=== PATIENT | female | born 1980 | race African-American/Black ===

== ENCOUNTER 2021-02-01 13:18 | Inpatient (IN) | payer OTHER ==
[~2021-02-01] VITALS: Ht 154.9 cm; Wt 144.4 kg
--- NOTE | ~2021-02-01 | EMS ---
[address] [address] EMS Patient Care Report Name: FARIBA HAWTHORNE Room #: REG OLVIN Chavez#: [id number] Admission: 02/01/21 Attend Phys: Discharge: Date of : 78 Report #: [id number] THIS REPORT FOR: //name// Report Transmitted: 02/01/2021 13:11 EMS Care Summary [place], [place]/[facility] Incident [id number] @ 02/01/2021 12:32 Incident Location [address] [place], [place] [id number] Patient FARIBA HAWTHORNE Female, 41 Years 1980 Patient Address [address] [place], [place] [id number] Patient History None Reported, Patient Allergies No known allergies, Patient Medications None Reported, Chief Complaint SOB Disposition Transported No Lights/[place] Dispatch Reason Breathing Problem Transported To [facility] Narrative pt found seated on bed, laboring to breathe. Castor Pumper on scene has admin an albuterol neb [employer]PER[employer]. they state pt RA 02 sat was in the "mid 60's". pt [address] [address] EMS Patient Care Report Name: FARIBA HAWTHORNE Room #: REG Scott#: [id number] Admission: 02/01/21 Attend Phys: Discharge: Date of : 78 Report #: [id number] has had a cough for 2 wks and felt sick. for past 2 days she has been SOB and hot. pt is not vaccinated. she req eval at closest ER. pt is on 02/ when we arrive, with mask in place. he o2 sat on NC is 88% on our arrival. pt to stair chair and out to cot. re check VS and transport to [facility]. pt 02 sat increases to 94% during transport. no other changes Initial Vitals @13:10R: 28,SpO2: 94, @12:57P: 104,R: 28,BP: 159/76,Pain: 0/10,GCS: 15,Temp: 101.4F,SpO2: 89,Revised Trauma: 12, Assessments @12:47MENTAL:No Abnormalities,SKIN:Diaphoresis,Hot,HEENT:Head/Face: Drainage,LUNG SOUNDS:ABDOMEN:PELVIS//GI:EXTREMITIES:PULSE:Radial: 2+ Normal,NEURO:No Abnormalities,@13:12MENTAL:SKIN:HEENT:LUNG SOUNDS:ABDOMEN:PELVIS//GI:EXTREMITIES:PULSE:NEURO: Impression Shortness of breath Procedures @12:47ALS AssessmentResponse: Unchanged@12:47StairchairResponse: Unchanged@12:51StretcherResponse: Unchanged@PTAAlbuterol - 2.5 Milligrams (mg) - NebulizedResponse: Unchanged@12:553-Lead ECGResponse: Unchanged@13:00Saline Lock 0cc (22 ga) Site: Hand-LeftResponse: UnchangedFailed@PTAOxygen FlowRate: 6 Device: Nasal Cannula (NC) Response: ImprovedSucceeded Timeline [employer] SUPERVISOR,Albuterol - 2.5 Milligrams (mg) - Nebulized,Response: Unchanged [employer] SUPERVISOR,Oxygen FlowRate: 6 Device: Nasal Cannula (NC) Response: ImprovedSucceeded, 12:31,Call Received 12:31,Dispatch Notified 12:32,Dispatched 12:34,En Route 12:45,On Scene 12:47,At Patient 12:47,ALS Assessment,Response: Unchanged 12:47,Stairchair,Response: Unchanged 12:51,Stretcher,Response: Unchanged 12:55,3-Lead ECG,Response: Unchanged 12:57,BP: 159/76 M,PULSE: 104,RR: 28 R,SPO2: 89 Ox,ETCO2: ,BG: ,PAIN: 0,GCS: 15, 13:00,Saline Lock 0cc 22 ga Site: Hand-Left,Response: UnchangedFailed, 13:03,Depart Scene 13:10,BP: / M,PULSE: ,RR: 28 R,SPO2: 94 Ox,ETCO2: ,BG: ,PAIN: ,GCS: , 13:20,At Destination [facility] [address] [place] [address] EMS Patient Care Report Name: FARIBA HAWTHORNE Room #: REG OLVIN Chavez#: [id number] Admission: 02/01/21 Attend Phys: Discharge: Date of : 78 Report #: [id number] 13:31,Call Closed Disclaimer v1.1 Copyright 2020 [employer] This EMS Care Summary contains data elements from the applicable legal record (which may be displayed differently). It is designed to provide pertinent information for the following purposes: continuity of care, clinical quality, and state data reporting. The complete legal record is available to ED staff and administrators of the receiving hospital in [employer] Patient Tracker. All data is provided "as is."
[2021-02-01 13:20] VITALS: BP 146/88
--- NOTE | 2021-02-01 13:44 | NUR ---
LAB CALLED TO OBTAIN LABS
[2021-02-01 14:23] LABS: ABSOLUTE NEUTROPHILS 10.1 thou/uL (1.4-8.2); BASOPHILS 0.7 % (0.0-2.0); EOSINOPHILS 0.1 % (0.0-3.0); HEMATOCRIT 41.7 % (37.0-47.0); LYMPHOCYTES 17.6 % (24.0-44.0); MCH 27.8 pg (26.0-34.0); MCHC 31.2 g/dL (28.0-37.0); MONOCYTES 6.6 % (1.0-8.0); PLATELET COUNT 370 thou/uL (150-400); RBC 4.69 mil/uL (4.20-5.00); RDW 15.6 % (10.5-14.5); WBC 13.5 thou/uL (4.0-11.0)
[2021-02-01 14:24] LABS: CREATININE 1.1 mg/dL (0.6-1.0); POTASSIUM 4.2 mmol/L (3.5-5.1)
[2021-02-01 14:34] LABS: ALBUMIN 3.3 g/dL (3.4-5.0); TOTAL PROTEIN 7.9 g/dL (6.4-8.2)
[2021-02-01 15:27] LABS: BE(vivo) -1.7 mmol/L (-2 to +3); HCO3 30.3 mmol/L (22.0-26.0); PCO2 92.4 mmHg (35.0-45.0); PO2 76.2 mmHg (80.0-100.0); pH 7.134 (7.360-7.450); sO2 89.8 % (92.0-98.0)
[2021-02-01 16:19] LABS: BE(vivo) -1.9 mmol/L (-2 to +3); HCO3 30.3 mmol/L (22.0-26.0); PO2 83.8 mmHg (80.0-100.0)
[2021-02-01 16:20] LABS: PCO2 93.5 mmHg (35.0-45.0); pH 7.129 (7.360-7.450)
[2021-02-01 17:50] LABS: BE(vivo) -1.1 mmol/L (-2 to +3); HCO3 25.6 mmol/L (22.0-26.0); PCO2 50.6 mmHg (35.0-45.0); PO2 98.1 mmHg (80.0-100.0); pH 7.322 (7.360-7.450); sO2 96.9 % (92.0-98.0)
--- NOTE | 2021-02-01 18:34 | NUR ---
CL PLACED IN THE ER
[2021-02-02] VITALS (9 sets, daily range): BP systolic 111–167; BP diastolic 57–87
[2021-02-02 05:23] LABS: BE(vivo) -0.5 mmol/L (-2 to +3); HCO3 25.3 mmol/L (22.0-26.0); PCO2 46.2 mmHg (35.0-45.0); PO2 76.7 mmHg (80.0-100.0); pH 7.357 (7.360-7.450); sO2 94.8 % (92.0-98.0)
[2021-02-02 06:42] LABS: HEMATOCRIT 38.7 % (37.0-47.0); HEMOGLOBIN 11.8 gm/dL (12.0-15.0); MCH 27.3 pg (26.0-34.0); MCHC 30.5 g/dL (28.0-37.0); MCV 89.5 fL (80.0-100.0); RBC 4.32 mil/uL (4.20-5.00); RDW 15.7 % (10.5-14.5); WBC 14.6 thou/uL (4.0-11.0)
[2021-02-02 06:50] LABS: CALCIUM 7.5 mg/dL (8.5-10.1)
--- NOTE | 2021-02-02 07:30 | EKG ---
[facility] [employer] [place] [address] ELECTROCARDIOGRAM REPORT Name: FARIBA HAWTHORNE Room #: 170-6 ADM IN M.R.#: [id number] Admission: 02/01/21 Attend Phys: Janina Chowdhury MD Discharge: Date of : 78 Report #: [id number] [facility] ED Test Date: 2021-02-01 Test Time: 14:58:18 Pat Name: FARIBA HAWTHORNE Department: Room: 170 Gender: F Contracting Officer: kf : 1980 Requested By: Carl Ramirez Order Number: [id number] MD: Tiburcio Hernandez Measurements Intervals Ramsey Rate: 95 P: 69 NE: 145 QRS: 35 QRSD: 93 T: 76 QT: 364 QTc: 458 Interpretive Statements Sinus rhythm LAE, consider biatrial enlargement Nonspecific T abnormalities, lateral leads Baseline wander in lead(s) II,III,aVF,V1,V5 No previous ECG available for comparison Electronically Signed On 02-02-2021 7:30:08 CDT by Tiburcio Hernandez [email or web address] <ELECTRONICALLY SIGNED> By: Tiburcio Hernandez MD, [facility] 02/02/2130 57 57 Tiburcio Hernandez MD, [facility] /EPI
--- NOTE | 2021-02-02 08:59 | NUR ---
SPOUSE GIVEN UPDATE ON POC ([facility]) [phone].
--- NOTE | 2021-02-02 16:03 | NUR ---
PATIENT ARRIVED TO ICU @ 1412. PATIENT'S BELONGINGS ACCOUNTED FOR AND PLACED IN PATIENT CLOSET.
[2021-02-03] VITALS (24 sets, daily range): BP systolic 118–141; BP diastolic 66–85
--- NOTE | 2021-02-03 08:23 | HC ---
[facility] [place] [address] CONSULTATION Name: FARIBA HAWTHORNE Room #: 240-P ADM IN M.R.#: [id number] Admission: 02/01/21 Attend Phys: Janina Chowdhury MD Discharge: Date of : 78 Report #: [id number] THIS REPORT FOR: cc: FAM - Family physician unknown FAM - Family physician unknown Darvin Sahu MD ~ DATE OF SERVICE: 02/02/2021 INFECTIOUS DISEASE CONSULT ATTENDING PHYSICIAN: Dr. Chowdhury. REASON FOR EVALUATION: Sepsis, complicated by severe pneumonitis, respiratory failure, apparently COVID negative. HISTORY OF PRESENT ILLNESS: This is a 41-year-old woman with history of asthma, previous stroke earlier this year, who apparently at time of presentation was lucid enough to give a history, complained of progressive dyspnea. Noted saturations were quite low on room air. She apparently denied fevers, chills, chest pain. Due to her deteriorating status, she ultimately was sedated, intubated and maintained now on respiratory support, FiO2 100%. She had been tested for coronavirus 2 separate times, both of which have been negative. Chest x-ray does show severe cardiomegaly with widespread infiltrates, suspected component of edema as well. Initial ABG showed pH 7.134, pCO2 of 92.4, pO2 of 76.2 on 14 liters. D-dimer 0.93. Lactic acid was 1.0. CTA of the chest showed no evidence of pulmonary embolus, did have a marked pericardial effusion. Initial temperature was 101.4 with some tachycardia. She was empirically started on antimicrobial therapy with Zosyn. ALLERGIES: None known. MEDICATIONS: Include dexamethasone, Zosyn, enoxaparin, famotidine, and received ceftriaxone and azithromycin as well. PAST MEDICAL HISTORY: History of asthma, previous stroke with residual right lower extremity weakness, morbid obesity. SOCIAL HISTORY: Smokes cigarettes. Occasional ethanol, no illicit drug use. FAMILY HISTORY: Noncontributory. REVIEW OF SYSTEMS: Unobtainable. PHYSICAL EXAMINATION: GENERAL: She appears ill. She is nonresponsive at this point, maintained on mechanical ventilatory support. [facility] [address] [place] [address] CONSULTATION Name: FARIBA HAWTHORNE Room #: 240-P [facility] IN M.R.#: [id number] Admission: 02/01/21 Attend Phys: Janina Chowdhury MD Discharge: Date of : 78 Report #: [id number] VITAL SIGNS: Temperature 98.9, pulse 83, respirations 20, blood pressure 156/94. SKIN: Warm, dry, no rashes. HEENT: ET tube in place. NECK: Thick. LUNGS: Diminished due to body habitus. HEART: Distant. ABDOMEN: Large pannus, somewhat firm. No peritoneal signs. GENITOURINARY AND RECTAL: Deferred. LABORATORY DATA: Chest x-ray as described above, cardiomegaly, bilateral pulmonary edema. Electrolytes: Sodium 140, potassium 4.0, chloride 106, bicarbonate 27, anion gap of 7, BUN and creatinine 16 and 1.0, glucose of 228. CBC: White count 14.6, H and H 11.8 and 38.7, platelets of 358. ABGs: pH 7.357, pCO2 of 46.2, pO2 of 76.7, FiO2 100%. Coronavirus testing, most recently by PCR, initial screening tests were negative. CT chest as described above with no evidence of PE, large pericardial effusion. Venous Doppler, no evidence of DVT. Ferritin 0.02. LDH 459. CRP 148.6. Lactic acid 1.0. Follow up ABGs: pH 7.322, pCO2 of 50.6, pO2 of 98.1, on 100%. ASSESSMENT AND PLAN: Severe sepsis, suspect primarily related to cardiopulmonary related issues, currently has respiratory compromise. For this reason, we will continue empiric therapy. We will add gram-positive coverage to assess for possible resistant Staph ____ as well. At this point, to evaluate pericardial effusion, may need some sort of intervention. At this point, she is not showing evidence of cardiac collapse. Continued supportive care is required with mechanical ventilatory support, wean as allowed. <ELECTRONICALLY SIGNED> By: Darvin Sahu MD 02/03/21 0823 [id number] Darvin Sahu MD /nt
--- NOTE | 2021-02-03 08:39 | 2DMMODE ---
[facility] [place] [address] 2 D/M-MODE ECHOCARDIOGRAM Name: FARIBA HAWTHORNE Room #: 240-P ADM IN M.R.#: [id number] Admission: 02/01/21 Attend Phys: Janina Chowdhury MD Discharge: Date of : 78 Report #: [id number] THIS REPORT FOR: cc: FAM - Family physician unknown FAM - Family physician unknown Tiburcio Hernandez MD [facility] ~ APPROVED REPORT Study performed: 02/02/2021 11:26:15 EXAM: Comprehensive 2D, Doppler, and color-flow Echocardiogram Patient Location: ER BSA: 2.40 HR: 98 bpm Rhythm: NSR Other Information Study Quality: Adequate Technically limited study due to morbid obesity on Vent. Indications Pericardial effusion, Short of breath. 2D Dimensions RVDd: 40.18 mm IVSd: 11.13 (7-11mm) LVOT Diam: 20.32 (18-24mm) LVDd: 38.28 mm PWd: 11.00 (7-11mm) Ascending Ao: 30.63 (22-36mm) LVDs: 28.96 (25-40mm) Left Atrium: 43.08 (27-40mm) Volumes Left Atrial Volume (Systole) Single Plane 4CH: 51.08 mL Single Plane 2CH: 67.90 mL LA ESV Index: 26.00 mL/m2 Aortic Valve AoV Peak Isreal.: 1.78 m/s AO Peak Gr.: 12.74 mmHg LVOT Max P.33 mmHg LVOT Max V: 1.44 m/s LUIZ Vmax: 2.62 cm2 [facility] [address] [place] [address] 2 D/M-MODE ECHOCARDIOGRAM Name: FARIBA HAWTHORNE Room #: [facility] IN [facility].#: [id number] Admission: 02/01/21 Attend Phys: Janina Chowdhury MD Discharge: Date of : 78 Report #: [id number] Mitral Valve E/A Ratio: 1.1 MV Decel. Time: 274.24 ms MV E Max Isreal.: 1.08 m/s MV A Isreal.: 0.99 m/s MV PHT: 79.53 ms IVRT: 76.12 ms Pulmonary Valve PV Peak Isreal.: 1.12 m/s PV Peak Gr.: 5.02 mmHg Pulmonary Vein P Vein S: 0.69 m/s P Vein A: 0.28 m/s P Vein D: 0.45 m/s P Vein A Dur.: 129.2 msec P Vein S/D Ratio: 1.53 Tricuspid Valve TR Peak Isreal.: 2.39 m/s RAP Estimate: 10.00 mmHg TR Peak Gr.: 23.00 mmHg PA Pressure: 33.00 mmHg Left Ventricle The left ventricle is normal size. There is normal LV segmental wall motion. There is normal left ventricular wall thickness. Left ventricular systolic function is normal. LVEF is 55%. Right Ventricle The right ventricle is normal size. The right ventricular systolic function is normal. Atria The left atrium size is normal. The right atrium size is normal. Aortic Valve The aortic valve is normal in structure. No aortic regurgitation is present. There is no aortic valvular stenosis. Mitral Valve The mitral valve is normal in structure. There is no mitral valve regurgitation noted. No evidence of mitral valve stenosis. Tricuspid Valve The tricuspid valve is normal in structure. Trace tricuspid regurgitation. Estimated PAP is 33mmHg. [facility] [place] [address] 2 D/M-MODE ECHOCARDIOGRAM Name: FARBIA HAWTHORNE Room #: 240-P [facility] IN M.R.#: [id number] Admission: 02/01/21 Attend Phys: Janina Chowdhury MD Discharge: Date of : 78 Report #: [id number] Pulmonic Valve The pulmonary valve is normal in structure. Trace pulmonic regurgitation. Great Vessels The aortic root is normal in size. IVC is dilated and collapses <50% with inspiration. Pericardium Moderate to large pericadial effusion. <Conclusion> Normal left ventricular size/wall thickness Ejection fraction 55% Grade 1 diastolic dysfunction Normal right ventricular size/function Normal atrial size Color-flow Doppler study was performed of the aortic/mitral/tricuspid/pulmonary valve Normal aortic/mitral valve structure and function Trace tricuspid valve insufficiency Pulmonary systolic pressure estimated 31 mmHg Normal aortic root size Moderate pericardial effusion mostly posteriorly, no tamponade physiology <ELECTRONICALLY SIGNED> By: Tiburcio Hernandez MD, FACC 02/03/21838 8 8 Tiburcio Hernandez MD, FAC /INF
[2021-02-03 09:40] LABS: HEMATOCRIT 38.5 % (37.0-47.0); HEMOGLOBIN 12.2 gm/dL (12.0-15.0); MCH 28.4 pg (26.0-34.0); MCHC 31.8 g/dL (28.0-37.0); MCV 89.4 fL (80.0-100.0); RBC 4.31 mil/uL (4.20-5.00); RDW 15.5 % (10.5-14.5)
[2021-02-03 09:43] LABS: CALCIUM 7.2 mg/dL (8.5-10.1); CREATININE 0.9 mg/dL (0.6-1.0); POTASSIUM 4.3 mmol/L (3.5-5.1)
--- NOTE | 2021-02-03 09:51 | NUR ---
chart review. Discussed during am unite rounds. Vent, OG to LIS. Cm visited with lolis via phone call. Intro to cm and transitions of care. They live at home with teenage kids. Spouse reported he has disability. She is independent, affects from past stroke in 2019. No dme, manage own medication. drives vehicle. No pcp. No rehab or hh in the past. Will cont following as needed for dc needs.
[2021-02-03 10:48] LABS: BE(vivo) -2.2 mmol/L (-2 to +3); HCO3 26.6 mmol/L (22.0-26.0); PCO2 64.2 mmHg (35.0-45.0); PO2 78.1 mmHg (80.0-100.0); sO2 92.9 % (92.0-98.0)
[2021-02-03 10:50] LABS: pH 7.235 (7.360-7.450)
--- NOTE | 2021-02-03 18:19 | NUR ---
PATIENT NOT PROGRESSING TOWARDS THE PLAN OF CARE EVIDENCED BY INCREASED SEDATION NEEDS TO MAINTAIN VENTILATOR STABILITY AND CRITICALLY LOW PH.
[2021-02-04] VITALS (23 sets, daily range): BP systolic 123–159; BP diastolic 68–93
--- NOTE | 2021-02-04 06:15 | NUR ---
Patient progressing towards goal as evidence by ability to decrease Fi02 85% to 75%. Stable VSS throughout my shift
[2021-02-04 10:12] LABS: BE(vivo) 1.5 mmol/L (-2 to +3); HCO3 25.3 mmol/L (22.0-26.0); PCO2 37.2 mmHg (35.0-45.0); PO2 70.1 mmHg (80.0-100.0); pH 7.451 (7.360-7.450); sO2 94.9 % (92.0-98.0)
[2021-02-04 12:29] LABS: ABSOLUTE NEUTROPHILS 8.4 thou/uL (1.4-8.2); BASOPHILS 0.2 % (0.0-2.0); EOSINOPHILS 0.1 % (0.0-3.0); HEMATOCRIT 39.9 % (37.0-47.0); HEMOGLOBIN 12.5 gm/dL (12.0-15.0); MCH 27.6 pg (26.0-34.0); MCHC 31.4 g/dL (28.0-37.0); MCV 87.8 fL (80.0-100.0); MONOCYTES 5.2 % (1.0-8.0); PLATELET COUNT 380 thou/uL (150-400); POLYS 88.5 % (36.0-66.0); RBC 4.54 mil/uL (4.20-5.00); RDW 15.4 % (10.5-14.5); WBC 9.5 thou/uL (4.0-11.0)
[2021-02-04 12:46] LABS: ALBUMIN 2.6 g/dL (3.4-5.0); CALCIUM 7.8 mg/dL (8.5-10.1); CREATININE 0.9 mg/dL (0.6-1.0); POTASSIUM 4.1 mmol/L (3.5-5.1); TOTAL PROTEIN 6.7 g/dL (6.4-8.2)
--- NOTE | 2021-02-04 14:17 | NUR ---
PATIENT'S SIGNIFICANT OTHER, BETZAIDA, CALLED FROM [phone] AND HE WAS UPDATED EDUCATED ON THE PATIENT'S CONDITION AND PLAN OF CARE. PATIENT'S AUNT, XOCHITL RODRIGUEZ, CALLED FROM [phone]. SHE WAS TOLD OF PATIENT'S STATUS BY BETZAIDA. SHE WAS GIVEN THE 4 DIGIT CODE AND SHE WAS INFORMED THAT ONLY HER AND BETZAIDA WOULD BE ABLE TO RECEIVE INFORMATION ABOUT THE PATIENT. XOCHITL WAS INFORMED OF THE VISITATION POLICY. DURING THE CALL, XOCHITL INFORMED US THAT BETZAIDA WAS THE PATIENT'S BOYFRIEND AND NOT HER WHICH IS WHAT HE WAS LISTED SO FAR IN THE MEDICAL RECORD.
--- NOTE | 2021-02-04 19:58 | NUR ---
PATIENT NOT PROGRESSING TOWARDS THE PLAN OF CARE EVIDENCED BY INCREASED OXYGEN/SEDATION REQUIREMENTS.
[2021-02-05] VITALS (24 sets, daily range): BP systolic 119–142; BP diastolic 64–82
--- NOTE | 2021-02-05 13:04 | NUR ---
SPOKE Tammy HUSTON THIS AM & JUST NOW W UPDATES.--VW
[2021-02-06] VITALS (23 sets, daily range): BP systolic 94–128; BP diastolic 40–70
[2021-02-06 06:00] LABS: HEMOGLOBIN 12.1 gm/dL (12.0-15.0); MCH 28.1 pg (26.0-34.0); MCV 87.8 fL (80.0-100.0); RBC 4.32 mil/uL (4.20-5.00); RDW 15.8 % (10.5-14.5); WBC 9.3 thou/uL (4.0-11.0)
[2021-02-06 06:21] LABS: CALCIUM 7.9 mg/dL (8.5-10.1); CREATININE 0.7 mg/dL (0.6-1.0); POTASSIUM 4.1 mmol/L (3.5-5.1)
[2021-02-06 09:48] LABS: BE(vivo) 4.5 mmol/L (-2 to +3); HCO3 27.7 mmol/L (22.0-26.0); PCO2 36.7 mmHg (35.0-45.0); PO2 72.2 mmHg (80.0-100.0); pH 7.496 (7.360-7.450); sO2 95.7 % (92.0-98.0)
--- NOTE | 2021-02-06 13:52 | NUR ---
Chart review, discussed during am unite rounds and during los with hospitalist. Vent, nutritional support. Will cont. following for dc needs.
[2021-02-07] VITALS (24 sets, daily range): BP systolic 100–129; BP diastolic 45–81
[2021-02-07 05:55] LABS: HEMATOCRIT 39.8 % (37.0-47.0); HEMOGLOBIN 12.4 gm/dL (12.0-15.0); MCH 27.4 pg (26.0-34.0); MCHC 31.1 g/dL (28.0-37.0); RBC 4.51 mil/uL (4.20-5.00); RDW 15.8 % (10.5-14.5); WBC 11.3 thou/uL (4.0-11.0)
[2021-02-07 06:06] LABS: CALCIUM 8.2 mg/dL (8.5-10.1); CREATININE 0.7 mg/dL (0.6-1.0); POTASSIUM 4.8 mmol/L (3.5-5.1)
[2021-02-07 11:32] LABS: BE(vivo) -3.2 mmol/L (-2 to +3); HCO3 22.4 mmol/L (22.0-26.0); PCO2 42.3 mmHg (35.0-45.0); PO2 65.4 mmHg (80.0-100.0); pH 7.341 (7.360-7.450); sO2 91.8 % (92.0-98.0)
[2021-02-07 12:15] LABS: URINE BILIRUBIN NEGATIVE (Negative); URINE BLOOD 3+ (Negative); URINE CLARITY CLEAR; URINE COLOR YELLOW; URINE GLUCOSE-RANDOM* NEGATIVE (Negative); URINE KETONES NEGATIVE (Negative); URINE LEUKOCYTES-REFLEX TRACE (Negative); URINE NITRITE-REFLEX NEGATIVE (Negative); URINE PROTEIN (DIPSTICK) NEGATIVE (Negative); URINE UROBILINOGEN 0.2 E.U./dl (0.2-1.0)
[2021-02-07 12:26] LABS: SQUAMOUS 0-3 Few /LPF (0-3)
[2021-02-07 12:28] LABS: BACTERIA-REFLEX None Seen /HPF (None Seen); CASTS None Seen /LPF (None Seen); CRYSTALS None Seen /LPF (None Seen); MUCUS 0-3 Light strn/LPF (None Seen); URINE WBC-REFLEX None Seen /HPF (0-5)
[2021-02-08] VITALS (13 sets, daily range): BP systolic 94–134; BP diastolic 50–73
--- NOTE | 2021-02-08 06:00 | NUR ---
VSS REMAINS INTUBATED AND SEDATED WITH FENTANYL VERSED AND PROPOFOL GTT FIO2 NOW AT 65 % SINUS RHYTHM. NOT PROGRESSING TOWARD GOALS. 1000 CC UO AND 300 CC FROM [employer] STOOL
[2021-02-08 06:50] LABS: ABSOLUTE NEUTROPHILS 9.7 thou/uL (1.4-8.2); BASOPHILS 0.6 % (0.0-2.0); EOSINOPHILS 1.5 % (0.0-3.0); HEMATOCRIT 36.9 % (37.0-47.0); HEMOGLOBIN 11.7 gm/dL (12.0-15.0); LYMPHOCYTES 12.1 % (24.0-44.0); MCH 27.7 pg (26.0-34.0); MCHC 31.7 g/dL (28.0-37.0); MCV 87.4 fL (80.0-100.0); MONOCYTES 7.6 % (1.0-8.0); PLATELET COUNT 359 thou/uL (150-400); POLYS 78.2 % (36.0-66.0); RBC 4.22 mil/uL (4.20-5.00); RDW 15.6 % (10.5-14.5); WBC 12.3 thou/uL (4.0-11.0)
[2021-02-08 07:17] LABS: ALBUMIN 2.9 g/dL (3.4-5.0); CALCIUM 8.7 mg/dL (8.5-10.1); CREATININE 0.7 mg/dL (0.6-1.0); POTASSIUM 4.2 mmol/L (3.5-5.1); TOTAL BILIRUBIN 0.7 mg/dL (0.2-1.0); TOTAL PROTEIN 7.1 g/dL (6.4-8.2)
--- NOTE | 2021-02-08 15:20 | NUR ---
CONT TO BE SEDATED. ATTEMPTED SEDATION AND SHE STARTED BITING HER TUBES,PULLING HER HANDS. APPEARED QUITE RESTLESS. CONT TO SLEEP AT THIS TIME. WILL CONT WITH PLAN OF CARE.
[2021-02-09] VITALS (46 sets, daily range): BP systolic 78–119; BP diastolic 38–63
--- NOTE | 2021-02-09 06:00 | NUR ---
REMAINS INTUBATED AND SEDATED. MOD AMT SECRETION FROM ET TUBE. 500 CC UO THIS SHIFT. SINUS RHYTHM. FIO2 TITRATED TO 55 %. PROGRESSING TOWARD GOALS
[2021-02-09 06:53] LABS: HEMATOCRIT 38.6 % (37.0-47.0); MCH 27.4 pg (26.0-34.0); MCHC 31.2 g/dL (28.0-37.0); MCV 87.6 fL (80.0-100.0); RBC 4.4 mil/uL (4.20-5.00); RDW 15.6 % (10.5-14.5); WBC 11.7 thou/uL (4.0-11.0)
[2021-02-09 07:08] LABS: CALCIUM 9.1 mg/dL (8.5-10.1); CREATININE 0.7 mg/dL (0.6-1.0)
--- NOTE | 2021-02-09 14:04 | NUR ---
SPOKE WITH PATIENT'S AUNT, XOCHITL, OVER THE PHONE FROM [phone] AND SHE WAS UPDATED AND EDUCATED ON THE PATIENT'S CONDITION AND PLAN OF CARE.
--- NOTE | 2021-02-09 15:53 | NUR ---
Chart review, discussed during los with hospitalist and unit rounds with pulmonary Md. Vent support, and nutritional support. Aunt has been updated by bedside nurse. will cont. following as needed for dc needs.
--- NOTE | 2021-02-09 18:07 | NUR ---
PATIENT IS NOT PROGRESSING TO THE PLAN OF CARE EVIDENCED BY INCREASED OXYGEN DEMAND AND NEW NEED FOR LEVOPHED.
[2021-02-10] VITALS (47 sets, daily range): BP systolic 110–176; BP diastolic 57–109
[2021-02-10 05:37] LABS: HEMATOCRIT 36.5 % (37.0-47.0); HEMOGLOBIN 11.7 gm/dL (12.0-15.0); MCH 28.2 pg (26.0-34.0); MCHC 32.2 g/dL (28.0-37.0); MCV 87.5 fL (80.0-100.0); RBC 4.17 mil/uL (4.20-5.00); RDW 15.8 % (10.5-14.5); WBC 10.2 thou/uL (4.0-11.0)
[2021-02-10 06:02] LABS: CALCIUM 8.7 mg/dL (8.5-10.1); CREATININE 0.6 mg/dL (0.6-1.0); POTASSIUM 4.3 mmol/L (3.5-5.1)
--- NOTE | 2021-02-10 07:28 | NUR ---
ASSUMED CARE AT 1900. FIO2 DECREASED TO 50% AT 2330, PT TOLERATING WELL, SATS IN MID 90'S. DECREASED LEVO GTT THIS AM. NO OTHER CONCERNS.
--- NOTE | 2021-02-10 08:46 | NUR ---
[facility] if [facility], can call # [phone]
--- NOTE | 2021-02-10 09:53 | NUR ---
Spoke with pt boyfriend, sad and concerned for her wellbeing/outcomes. Stated he "totally trusts you guys it's just so hard being here and home and not being able to talk to her". RN reassured he is able to visit, went over visitor policy, encouraged him to call for updates whenever he feels like it.
[2021-02-11] VITALS (41 sets, daily range): BP systolic 111–208; BP diastolic 56–115
[2021-02-11 05:07] LABS: HEMATOCRIT 35.5 % (37.0-47.0); HEMOGLOBIN 11.2 gm/dL (12.0-15.0); MCH 27.8 pg (26.0-34.0); MCHC 31.6 g/dL (28.0-37.0); MCV 87.8 fL (80.0-100.0); RBC 4.04 mil/uL (4.20-5.00); RDW 15.9 % (10.5-14.5); WBC 8.9 thou/uL (4.0-11.0)
[2021-02-11 05:09] LABS: CALCIUM 8.8 mg/dL (8.5-10.1); CREATININE 0.7 mg/dL (0.6-1.0)
--- NOTE | 2021-02-11 05:59 | NUR ---
ASSUMED CARE AT 1900. PT VERY RESTLESS, MOVING HEAD BACK AND FORTH AND OVERBREATHING VENT; TITRATED SEDATION UP AND GAVE MORPHINE x2 TO REDUCE WORK OF BREATHING. PT W/LOW GRADE TEMP, MAX 100.2 AXILLARY, MUCH OF NIGHT; GAVE TYLENOL AND USED ICE PACKS. SLOW PROGRESSION OF CARE.
--- NOTE | 2021-02-11 11:44 | NUR ---
Spoke with pts aunvioleta Sunshine from 1143-45 gave general status update on improved ventilator settings and awakening trials. Aunt stated she was very happy to hear it and she would call in a few more days to see how she was doing.
[2021-02-11 13:37] LABS: BE(vivo) 10.2 mmol/L (-2 to +3); HCO3 37.7 mmol/L (22.0-26.0); PCO2 63.3 mmHg (35.0-45.0); PO2 70.7 mmHg (80.0-100.0); pH 7.393 (7.360-7.450); sO2 93.6 % (92.0-98.0)
--- NOTE | 2021-02-11 13:55 | NUR ---
Pt tolerated CPAP trial for about 40 minutes. Became extremely agitated and attempting to break restraints to pull tube herself. RN at bedside with RT - getting ABG. P02 on ABG in 60's, pt tachycardic with increased secretions from tube and mouth. Sedation restarted, will reassess tomorrow for extubation readiness.
--- NOTE | 2021-02-11 14:29 | NUR ---
Spoke with pt daughter and Agnes Hannah on the phone. Gave overall status update, talked about process of CPAP trialing and need to try again tomorrow. Family asked if cardiology had been by to see pt and RN stated they had not given specific orders today. Camden asked if pts aunt Bita had been to visit and RN stated no she had not but she had called for updates.
[2021-02-12] VITALS (27 sets, daily range): BP systolic 123–149; BP diastolic 66–106
--- NOTE | 2021-02-12 06:00 | NUR ---
VSS REMAINS INTUBATED AND SEDATED WITH FENTANYL VERSED AND PROPOFOL 2000 CC UO AND 100 CC FROM [facility]. SINUS RHYTHM TO SINUS TACH. NICOLE GLUCERNA TF PROGRESSING TOWARD GOALS. WILL ATTEMPT CPAP AGIN TODAY. BATHED. WILL CONT TO MONITOR
[2021-02-12 07:35] LABS: HEMATOCRIT 36.1 % (37.0-47.0); HEMOGLOBIN 11.2 gm/dL (12.0-15.0); MCHC 30.9 g/dL (28.0-37.0); MCV 87.4 fL (80.0-100.0); RBC 4.13 mil/uL (4.20-5.00); RDW 15.9 % (10.5-14.5); WBC 7.6 thou/uL (4.0-11.0)
[2021-02-12 07:50] LABS: CALCIUM 8.8 mg/dL (8.5-10.1); CREATININE 0.6 mg/dL (0.6-1.0); POTASSIUM 4.5 mmol/L (3.5-5.1)
--- NOTE | 2021-02-12 09:41 | NUR ---
ASSUMED CARE OF PT AT 0700.
--- NOTE | 2021-02-12 13:23 | NUR ---
ASSUMED CARE OF PT AT 0700 SPOKE TO THE AT 1320 AND UPDATED PER POC AND ANSWERED ALL QUESTIONS
--- NOTE | 2021-02-12 15:23 | NUR ---
Chart review, discussed during los with hospitalist and unit rounds with pulmonary. Vent, nutritional support, bedside nurse cont. to update family as needed. No anticipated dc over the weekend, will cont. following as needed for dc needs.
[2021-02-13] VITALS (24 sets, daily range): BP systolic 109–172; BP diastolic 57–99
--- NOTE | 2021-02-13 | NUR ---
SPOKE WITH PTS BOYFRIEND CHARLOTTE GIVEN A cond report.
--- NOTE | 2021-02-13 06:00 | NUR ---
REMAINS INTUBATED AND SEDATED WITH PROPOFOL VERSED AND FENTANYL VSS SINUS BRETT TO SR SUCTIONED FOR A MOD AMT SECRETIONS FROM ET AND ORALLY WILL DO CPAP TRIALS TODAY. PROGRESSING TOWARD GOALS.
[2021-02-13 07:38] LABS: CALCIUM 9.2 mg/dL (8.5-10.1); CREATININE 0.7 mg/dL (0.6-1.0); HEMATOCRIT 36.9 % (37.0-47.0); HEMOGLOBIN 11.7 gm/dL (12.0-15.0); MCH 27.5 pg (26.0-34.0); MCHC 31.7 g/dL (28.0-37.0); MCV 86.7 fL (80.0-100.0); RBC 4.25 mil/uL (4.20-5.00); RDW 15.8 % (10.5-14.5); WBC 7.3 thou/uL (4.0-11.0)
--- NOTE | 2021-02-13 18:11 | NUR ---
increasing amounts of propofol for sedation. order from Dr. Nicholson to increase versed for sedation to allow for decreased need for propofol. in am, Bita Holbrook, aunt called regarding an update on pt status. in afternoon, Camden, vitalyfriend called for update. both updated on amount of O2 requirement on vent, able to decreases in sedation which allow pt to wake up enough to follow commands with all extremities however sedation in increased again to allow her to tolerate breathing on the vent. when Camden inquired, rn explained that terminal system operator we don't know her outcome weeks or months down the road, at this time we are trying to decrease her needs on the vent with an optimal plan of having the breathing tube out, but that may not be the case, we do not know at this time, it depends on her progress. if not enough progress that could require a trach for her breathing. pt slowly progressing, down to fio2-50% with peep-8. follows commands with all extremities and nods head up and down, affirmatively.
[2021-02-14] VITALS (25 sets, daily range): BP systolic 109–187; BP diastolic 57–111
[2021-02-14 07:03] LABS: HEMATOCRIT 39.1 % (37.0-47.0); HEMOGLOBIN 12.6 gm/dL (12.0-15.0); MCH 27.5 pg (26.0-34.0); MCHC 32.1 g/dL (28.0-37.0); MCV 85.6 fL (80.0-100.0); RBC 4.57 mil/uL (4.20-5.00); RDW 15.7 % (10.5-14.5); WBC 11.1 thou/uL (4.0-11.0)
[2021-02-14 07:06] LABS: CALCIUM 9.1 mg/dL (8.5-10.1); CREATININE 0.7 mg/dL (0.6-1.0); POTASSIUM 4.1 mmol/L (3.5-5.1)
--- NOTE | 2021-02-14 18:45 | NUR ---
slowly progressing. fio2 down to 35%, peep down to 6. sedation infusing- on cpap trial, tolerating. pt slowly progressing. Fernando, boyfriend called to check up on pt, updated.
[2021-02-15] VITALS (30 sets, daily range): BP systolic 108–179; BP diastolic 53–99
[2021-02-15 07:06] LABS: ABSOLUTE NEUTROPHILS 7.8 thou/uL (1.4-8.2); BASOPHILS 0.6 % (0.0-2.0); EOSINOPHILS 0.2 % (0.0-3.0); HEMATOCRIT 41.8 % (37.0-47.0); LYMPHOCYTES 19.7 % (24.0-44.0); MCHC 31.2 g/dL (28.0-37.0); MCV 86.4 fL (80.0-100.0); MONOCYTES 10.8 % (1.0-8.0); PLATELET COUNT 498 thou/uL (150-400); POLYS 68.7 % (36.0-66.0); RBC 4.83 mil/uL (4.20-5.00); RDW 16.1 % (10.5-14.5); WBC 11.4 thou/uL (4.0-11.0)
[2021-02-15 07:17] LABS: ALBUMIN 3.4 g/dL (3.4-5.0); CALCIUM 9.4 mg/dL (8.5-10.1); CREATININE 0.7 mg/dL (0.6-1.0); MAGNESIUM 2.4 mg/dL (1.8-2.4); PHOSPHORUS 4.8 mg/dL (2.6-4.7); POTASSIUM 4.2 mmol/L (3.5-5.1); TOTAL BILIRUBIN 0.9 mg/dL (0.2-1.0); TOTAL PROTEIN 7.8 g/dL (6.4-8.2)
[2021-02-15 11:36] LABS: URINE BILIRUBIN NEGATIVE (Negative); URINE BLOOD 2+ (Negative); URINE CLARITY CLEAR; URINE COLOR YELLOW; URINE GLUCOSE-RANDOM* NEGATIVE (Negative); URINE KETONES NEGATIVE (Negative); URINE LEUKOCYTES-REFLEX NEGATIVE (Negative); URINE NITRITE-REFLEX NEGATIVE (Negative); URINE PROTEIN (DIPSTICK) NEGATIVE (Negative); URINE UROBILINOGEN 0.2 E.U./dl (0.2-1.0)
[2021-02-15 11:57] LABS: BACTERIA-REFLEX 1-9 Few /HPF (None Seen); SQUAMOUS 0-3 Few /LPF (0-3); URINE RBC 3-10 Few /HPF (NONE SEEN); URINE WBC-REFLEX 0-5 Rare /HPF (0-5)
--- NOTE | 2021-02-15 13:16 | NUR ---
NOTED CHEST XRAY AND CENTRAL LINE MALPOSITIONED/FLIPPED UP UPON ITSELF. NEW ORDER AND CONSENT OBATAINED. A #5F TRIPLE LUMWN PICC WAS PLACED AFTER A BEDSIDE TIMEOUT WAS COMPLETED PER POLICY. THE LINE WAS TRIMMED TO 45CM AND ADVANCED WITHOUT DIFFICULTY. THE LINE WAS CONFIRMED WITH 3CG AND RELEASED FOR USE. THE RIGHT IJ CENTRAL LINE WAS DISCONTINUED
--- NOTE | 2021-02-15 15:17 | NUR ---
RN DISCUSSED WITH AUNT OF THE PT, LISTED ON NEXT OF KIN/AUTHORIZED CONTACT, DISCUSSED NEEDING ANOTHER CENTRAL LINE INSERTION, RETREIVIGN VERBAL CONSEN W/ MAYAHER JAMES SOLIS, DISCUSSED PT FAILING CPAP TRIAL, TITRATING SEDATION MEDS DOWN POSSIBLE, AND CONTINUING CPAP TRIAL. UPDATED , STATED SHE WANTED TUBE FEEDINGS TO BE STOPPED 30 MIN PRIOR TO CPAP TRIALING
--- NOTE | 2021-02-15 15:50 | 2DMMODE ---
[facility] [place] [address] 2 D/M-MODE ECHOCARDIOGRAM Name: FARIBA HAWTHORNE Room #: 240-P ADM IN M.R.#: [id number] Admission: 02/01/21 Attend Phys: Janina Chowdhury MD Discharge: Date of : 78 Report #: [id number] THIS REPORT FOR: cc: FAM - Family physician unknown FAM - Family physician unknown Claudio Sargent MD ~ APPROVED REPORT Study performed: 02/15/2021 13:11:50 EXAM: Limited 2D Echocardiogram Patient Location: ICU Room #: 240 Status: on-call BSA: 2.30 HR: 113 bpm BP: 139/76 mmHg Rhythm: Tachycardia Other Information Study Quality: Adequate Technically limited study due to body habitus, inability to position patient. Indications Pericardial Effusion 2D Dimensions IVSd: 11.87 (7-11mm) LVDd: 35.79 mm PWd: 11.73 (7-11mm) Ascending Ao: 28.49 (22-36mm) LVDs: 23.76 (25-40mm) Aortic Root: 25.18 mm Left Ventricle The left ventricle is normal size. There is normal LV segmental wall motion. Borderline concentric left ventricular hypertrophy. The left ventricular systolic function is normal. The left ventricular ejection fraction is within the normal range. LVEF is 55-60%. Right Ventricle The right ventricle is normal size. The right ventricular systolic function is normal. [facility] [address] [place] [address] 2 D/M-MODE ECHOCARDIOGRAM Name: FARIBA HAWTHORNE Room #: 240-P ADM IN M.R.#: [id number] Admission: 02/01/21 Attend Phys: Janina Chowdhury MD Discharge: Date of : 78 Report #: [id number] The left atrium size is normal. The right atrium size is normal. Aortic Valve The aortic valve is normal in structure. Mitral Valve The mitral valve is normal in structure. Tricuspid Valve The tricuspid valve is normal in structure. Pulmonic Valve The pulmonary valve is normal in structure. Great Vessels The aortic root is normal in size. The ascending aorta is normal in size. IVC is not well visualized. Pericardium Moderate to large pericardial effusion without echocardiographic evidence of tamponade <Conclusion> The left ventricle is normal size. Borderline concentric left ventricular hypertrophy. LVEF is 55-60%. The right ventricular systolic function is normal. The left atrium size is normal. The aortic valve is normal in structure. The mitral valve is normal in structure. The tricuspid valve is normal in structure. The pulmonary valve is normal in structure. The aortic root is normal in size. Moderate to large pericardial effusion without echocardiographic evidence of tamponade <ELECTRONICALLY SIGNED> By: Claduio Sargent MD 02/15/21 1550 [id number] 1550 Claudio Sargent MD /RAMANDEEP
--- NOTE | 2021-02-15 18:24 | NUR ---
ATTEMPTED TO TRY A CPAP TRIAL WITH PATIENT TODAY HOWEVER, WHEN FIO2 WAS PLACED TO 35% PT MAINTAINED A OXYGENATION SATURATION OF 89-90%. PT PLACED BACK TO 40%FIO2 WITH PULSE OX NOW IN MID 'S. PT HAD SEDATION TITRATED DOWN TODAY DURING SHIFT, AND PT HAD GOOD RESPONSE. WILL CONTINUE TO FOLLOW POC.
[2021-02-16] VITALS (81 sets, daily range): BP systolic 109–242; BP diastolic 56–142
[2021-02-16 01:06] LABS: GLYCOHEMOGLOBIN (HGB A1C) 6.2 % (4.8-5.6)
[2021-02-16 05:31] LABS: BE(vivo) 8.3 mmol/L (-2 to +3); HCO3 33.3 mmol/L (22.0-26.0); PCO2 47.3 mmHg (35.0-45.0); PO2 73.2 mmHg (80.0-100.0); pH 7.465 (7.360-7.450); sO2 95.4 % (92.0-98.0)
[2021-02-16 06:12] LABS: HEMATOCRIT 36.5 % (37.0-47.0); HEMOGLOBIN 12.4 gm/dL (12.0-15.0); MCH 29.2 pg (26.0-34.0); MCHC 33.8 g/dL (28.0-37.0); MCV 86.3 fL (80.0-100.0); PLATELET COUNT 461 thou/uL (150-400); RBC 4.23 mil/uL (4.20-5.00); RDW 16.2 % (10.5-14.5); WBC 11.4 thou/uL (4.0-11.0)
[2021-02-16 07:20] LABS: CREATININE 0.7 mg/dL (0.6-1.0); MAGNESIUM 2.2 mg/dL (1.8-2.4); PHOSPHORUS 4.8 mg/dL (2.5-4.9); POTASSIUM 4.4 mmol/L (3.5-5.1); TOTAL BILIRUBIN 1.2 mg/dL (0.2-1.0)
[2021-02-16 08:05] LABS: ABSOLUTE NEUTROPHILS 8.7 thou/uL (1.4-8.2); PLATELET ESTIMATE NORMAL
[2021-02-16 12:11] LABS: BE(vivo) 10.1 mmol/L (-2 to +3); HCO3 35.7 mmol/L (22.0-26.0); PCO2 51.3 mmHg (35.0-45.0); PO2 54.2 mmHg (80.0-100.0); pH 7.461 (7.360-7.450); sO2 89.3 % (92.0-98.0)
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
[2021-02-17] VITALS (46 sets, daily range): BP systolic 142–213; BP diastolic 76–109
[2021-02-17 10:53] LABS: CALCIUM 8.1 mg/dL (8.5-10.1); CREATININE 0.7 mg/dL (0.6-1.0); POTASSIUM 3.3 mmol/L (3.5-5.1)
--- NOTE | 2021-02-17 12:50 | NUR ---
PT CONTINUES TO DISPLAY DELIRIUM WITH MOODS RANGING FROM PLEASANT ONE MOMENT TO VERY AGITATED.PT CONTINUES TO YELL OUT, AND CONTINUES TO HAVE HYPERTENSION. PT IS IN RESTRAINTS DUE TO PULLING OFF OXYGEN MULTIPLE TIMES. PT AUNT (XOCHITL) CAME BY TODAY TO VISIT WITH THE PATIENT, PT ALSO SPOKE TO OVER THE PHONE. PT AUNT TOOK POSSESSION OF PT CELL PHONE TO CHARGE AND BRING BACK AT A LATER DATE. WILL CONTINUE TO MONITOR FOR PT SAFETY, REORIENT PT, AND MONITOR B/P & OXYGENATION.
[2021-02-18] VITALS (59 sets, daily range): BP systolic 151–215; BP diastolic 74–116
--- NOTE | 2021-02-18 11:58 | NUR ---
Discussed during unit rounds and with hospitalist during los. Cont to required High flow oxygen, restless, tearful, anxious and anger at times. Dr ames to be consulted. Will cont following as needed for dc needs.
--- NOTE | 2021-02-18 17:16 | NUR ---
PATIENT PROGRESSING IN PLAN OF CARE. PATIENT CONTINUES ON HIGH FLOW NASAL CANNULA. DUNG HUSTON UPDATED ON PATIENT PROGRESS TODAY. PATIENT BEGINS ON DIET TODAY. CONTINUES TO HAVE CONFUSION DURING THE DAY. PRECEDEX CONTINUES.
[2021-02-19] VITALS (92 sets, daily range): BP systolic 96–198; BP diastolic 46–102
[2021-02-19 09:49] LABS: HEMATOCRIT 41.5 % (37.0-47.0); HEMOGLOBIN 12.9 gm/dL (12.0-15.0); MCH 27.1 pg (26.0-34.0); MCHC 31.2 g/dL (28.0-37.0); MCV 86.7 fL (80.0-100.0); RBC 4.78 mil/uL (4.20-5.00); RDW 16.4 % (10.5-14.5); WBC 8.8 thou/uL (4.0-11.0)
[2021-02-19 09:54] LABS: CALCIUM 9.2 mg/dL (8.5-10.1); CREATININE 0.6 mg/dL (0.6-1.0); POTASSIUM 4.5 mmol/L (3.5-5.1)
[2021-02-20] VITALS (46 sets, daily range): BP systolic 91–141; BP diastolic 41–96
--- NOTE | 2021-02-20 11:31 | NUR ---
Dr Stokes at pt bedside for evaluation at this time.
--- NOTE | 2021-02-20 15:20 | NUR ---
Per attending in AM review of case: Notes stabilization of patient currently. Pulmonology review noted okay to transfer to floor when cleared by primary. Currently on Opitflow 50 Lpm Improved in mentation and passed evaluation of speech. Plan to taper 02 support. CM will follow per MD direction as needed, noting previously independent and no history of DME, able to manage medication and has been driving. The patient has not used or needed rehab or home health in the past. Noted that patient maybe a possible [address] [place] [address] candidate as care progresses. Noted request from attending as patient was attempting to leave AMA for purpose of picking up mail at [employer]. Called and spoke with spouse Camden at [phone] who will call and explain to patient to remain in the hospital and follow MD orders.
[2021-02-21] VITALS (14 sets, daily range): BP systolic 109–149; BP diastolic 51–77
--- NOTE | 2021-02-21 17:11 | NUR ---
Report called to Skylar Lira. Patient transported via bed, AxOX2 with periods of confusion. All belongings sent with patient. Fernando notified of patients transfer to room 446, all questions answered at this time.
[2021-02-22 00:10] VITALS: BP 110/56
--- NOTE | 2021-02-22 00:13 | NUR ---
ASSUMED CARE OF PT AT 1900. BEDSIDE REPORT RECIEVED. MARCI ASSESSMENT COMPLETE.PT DENIES ANY PAIN AT THIS TIME, NO S/S INDICATING PAIN OR DISCOMFORT OBSREVED. PT PLACED ON TELEMETRY MONITORING PER PRIOR ORDER AT [facility]. PT PLEASANT AND COOPERATIVE, EXPERIENCING CONFUSION, PROVIDED REORIENTATION FOR PT AND EDUCATION. PT WAS INCONT OF URINE, CLEANED PT, PROVIDED SERA CARE, LINEN AND CHUX CHANGED, BARRIER CREAM APPLIED TO SACRAM AND GROIN AREA. REPOSITIONED FOR COMFORT. FELIX SNOWDEN PICC CDI SECURED C TRANSPARENT DRSG. CONTINUING ON 2 L NC AND TOLERATING WELL. MEDS ADMINISTERED PER AUG. ORAL CARE PROVIDED. FALL RISK PRECAUTIONS IN PLACE. DENIES ANY OTHER NEEDS,WILL CONTINUE TO MONITOR, CALL LIGHT IN REACH.
--- NOTE | 2021-02-22 03:55 | NUR ---
I CONCUR WITH PT NOTE AND ASSESSMENT BY PEBBLES IBARRA.
[2021-02-22 04:30] VITALS: BP 139/89
[2021-02-22 07:56] VITALS: BP 111/56
--- NOTE | 2021-02-22 11:49 | NUR ---
A/O X 2 Very CONFUSED AND FORGETFUL. 2 L O2 VIA NASAL CANNULA. BEDBOUND. RIGHT UPPER TRIPLE LUMEN PICC- FLUSHES WELL. INCONT OF B/B. ACCU CHECKS Q 6HRS. LAST BM 02/22. HAVING BILATERAL LEG PAIN 12/20 SHE SAYS FROM GOUT. MORPHINE 2 MG GIVEN. SINUS TACHY ON TELE.
[2021-02-22 15:39] VITALS: BP 186/82
[2021-02-22 21:13] VITALS: BP 154/82
[2021-02-23] VITALS (7 sets, daily range): BP systolic 102–132; BP diastolic 55–79
--- NOTE | 2021-02-23 04:50 | NUR ---
UPON SHIFT ASSESSMENT, PT AOX4 WITH INTERMITTENT FORGETFULNESS AND INCONGRUENT CONVERSATIONS. PT REPORTS 10/10 RIGHT KNEE 'GOUT' PAIN. PT HAS PRN PO APAP Q6HR AVAILABLE, REFUSING TO TAKE DUE TO REPORTS OF INEFFECTIVENESS. ONCALL PRODUCT TRANSFER PUMPER NOTIFIED, EMAR UPDATED. PT GIVEN ONETIME IV TORADOL. PT DENIES SOB WHILE ON 2L O2 VIA NC. PT TOLERATING PO INTAKE OF FLUIDS AND CARB CONTROLLED DIET WITHOUT ISSUE. PT WITHOUT NAUSEA OR EMESIS. PT INTERMITTENTLY INCONTINENT OF BOWEL AND BLADDER. PT RESTING IN BED THROUGHOUT SHIFT, FREQUENT REPOSITIONING ENCOURAGED. PT NOTED TO SHIFT SLIGHTLY ON HER OWN, REPOSITIONING ASSISTANCE REFUSED. SENSATION INTACT, CAPILLARY REFILL LESS THAN 3SEC, PERIPHERAL PULSES PALPABLE IN ALL EXTREMITIES. PT ENCOURAGED TO NOTIFY STAFF FOR ALL NEEDS, CALL LIGHT WITHIN REACH, BED ALARM ON, BED LOCKED IN LOWEST POSITION, FREQUENT MONITORING WILL CONTINUE.
--- NOTE | 2021-02-23 10:23 | NUR ---
Discuss during los. 5N going to request auth from [facility]/medicaid for acute rehab. Will cont following as needed for dc needs.
--- NOTE | 2021-02-23 13:52 | NUR ---
5N CONSULT COMPLETED BY JESSICA COLLINS NP. Pt MEETS [facility]ITER[facility] FOR ACUTE REHAB. CALLED HOME STATE INSURANCE WAS INFORMED TO SUBMIT FOR AUTHORIZATION ON THEIR WEBSITE. HOWEVER D/T TIME NEEDED TO PROCESS NEW USER ACCOUNT TO THEN SUBMIT FOR AUTHORIZATION, THIS MINK RANCHER WAS GIVEN APPROVAL BY MAKI RODRIGUEZ (CONCURRENT REVIEWER) TO START AUTHORIZATION OVER THE PHONE THIS DAY. SPOKE W/ FLAQUITA WHO PROVIDED AUTH #[id number]. WILL FAX CLINICAL INFORMATION TO PROVIDED FAX # [phone] THIS AFTERNOON AND AWAIT REVIEWER DETERMINATION OF AUTHORIZATION.
--- NOTE | 2021-02-23 19:40 | NUR ---
Assumed pt care at 7am.Assessment completed. Pt in and out of bed with assist x1-2. Meds given as ordered and well tolerated. Assisted pt with tray setup at all meals.Fair appetite noted. Later this evening, pt c/o bilat legs pain. Tylenol susp given with relief. Pt was up in chair for over 2 hours today. Good endurance noted.Pt will possibly dc in to rehab unit if bed vailable.Report off to helene tavarez.
--- NOTE | 2021-02-24 01:40 | NUR ---
ASSUMED CARE OF PT AT 1900. BEDSIDE REPORT RECIEVED, MARCI ASSESSMENT COMPLETE. RT APPLIED 3 L NC ON PT FOR NIGHT TIME. MEDS GIVEN ORDERED. PT C/O GOUT PAIN. ASKED PT IF TAKES ANYTHING AT HOME, PT REPORTED YES BUT WAS UNSURE OF WHAT. WILL PASS ON TO DAY SHIFT. ASSISTED PT IN MORE COMOFORTABLE POSITION IN BED. FELIX SNOWDEN PICC DSG CDI. PT REQUESTING WALKER FOR HER, WILL PASS ON TO DAY SHIFT. PROVIDED PT C EDUCATION. BARRIER CREAM APPLIED TO SACRUM AND GROIN AREA. REFILLED WATER. PT DENIES ANY OTHER NEEDS AT THIS TIME. CALL LIGHT IN REACH
[2021-02-24 03:45] VITALS: BP 133/85
[2021-02-24 08:00] VITALS: BP 109/77
[2021-02-24 09:03] VITALS: BP 109/77
--- NOTE | 2021-02-24 09:11 | NUR ---
RECEIVED CALL FROM SHALONDA AT [facility]. Pt WAS APPROVED FOR 3 DAYS FOR ACUTE REHAB, FROM 02/24-02/27 WITH REVIEW DUE ON Tuesday03/02/21. SHALONDA WILL REVIEW Pt ONE WEEK AT A TIME. SHALONDA CAN BE REACHED AT [phone]. SHALONDA FAXING AUTHORIZATION INFORMATION TO THIS NIGHT ORDER SELECTOR ALSO. SPOKE W/ DR. ALBRIGHT AND WILL PLAN FOR 5N ADMISSION LATER THIS AFTERNOON.
--- NOTE | 2021-02-24 10:58 | NUR ---
Notified by disability liaison officer that britni wanted to visit with cm. Spoke with her, she requested assist with clothing 3x for exercise, only clothing she had was cut off her when she arrived here. lives in [facility] [place] [facility] and cost to must, have 18 year old who is disabled and her checked stopped coming, she is not self- sufficient, have 17 and 16 year old children as well. Needing Dr as well, live in [place] area per britni. Safe net packet provided and education on [facility] and [facility] for pcp. checking on clothing? DCP 5N acute rehab, bedside nurse to call report to [phone].
--- NOTE | 2021-02-24 12:34 | NUR ---
Assumed pt care at 7am.Pt in and out of bed with assist x1. Assessment completed.Vss.Pt tolerated meds but refused breakfast. Dr Desai here,dc order noted but still waiting for Dr Michelle to finalize the order. Pt will be trnasfer to rehab unit later today.Fall bundle in place ,will continue to monitor.
[2021-02-24] MEDS ORDERED: PREDNISONE 20 M20 MG PO (14:46)
[2021-02-24] MEDS ORDERED: LISINOPRIL20 MG PO (14:46)
[2021-02-24] MEDS ORDERED: MIRALAX17 GM PER TUBE (14:46)
[2021-02-24] MEDS ORDERED: HYDROCHLOROTHIA25 M1 PO (14:46)
[2021-02-24] MEDS ORDERED: ENOXAPARIN60 MG/0.1 SUBQ (14:46)
[2021-02-24] MEDS ORDERED: SEROQUEL 50 MG50 MG PO (14:46)
[2021-02-24] MEDS ORDERED: IPRAT-ALBUT 0.5-3 ML INH ×2 (14:46)
[2021-02-24] MEDS ORDERED: NIFEDIPINE ER30 M1 PO (14:46)
[2021-02-24] MEDS ORDERED: TYLENOL 8 HOUR650 MG PO (14:48)
[2021-02-24] MEDS ORDERED: PEPCID20 MG PO (14:48)
== END 2021-02-24 15:32 | DRG 870 ==
LOC: EDBD 13:18 → ER 13:18 → ICU 17:31 → EROBS 17:31 → ICU 02-02 14:23 → 4S 02-21 16:49
PROVIDERS: Emergency Medicine; Internal Medicine; Internal Medicine Pulmonary Disease; Nurse Practitioner; Nurse Practitioner Family; Pediatrics; Specialist; ADMIT Internal Medicine; ATTEND Internal Medicine
DX: A41.9 Sepsis, unspecified organism (principal); J80 Acute respiratory distress syndrome; G93.41 Metabolic encephalopathy; J18.9 Pneumonia, unspecified organism; I50.33 Acute on chronic diastolic (congestive) heart failure; I31.3 Pericardial effusion (noninflammatory); E87.0 Hyperosmolality and hypernatremia; E46 Unspecified protein-calorie malnutrition; J45.901 Unspecified asthma with (acute) exacerbation; N17.9 Acute kidney failure, unspecified; G72.81 Critical illness myopathy; Z68.44 Body mass index [BMI] 60.0-69.9, adult; R65.20 Severe sepsis without septic shock; J45.909 Unspecified asthma, uncomplicated; E66.01 Morbid (severe) obesity due to excess calories; F17.210 Nicotine dependence, cigarettes, uncomplicated; Z20.822 Contact with and (suspected) exposure to COVID-19; I11.0 Hypertensive heart disease with heart failure; D64.9 Anemia, unspecified; E87.8 Other disorders of electrolyte and fluid balance, not elsewhere classified; E87.70 Fluid overload, unspecified; B96.3 Hemophilus influenzae [H. influenzae] as the cause of diseases classified elsewhere; R74.01 Elevation of levels of liver transaminase levels; Z79.899 Other long term (current) drug therapy; Z86.73 Personal history of transient ischemic attack (TIA), and cerebral infarction without residual deficits
CPT/HCPCS: 10078; 10100; 27000

== ENCOUNTER 2021-02-24 09:55 | Inpatient (IN) | payer OTHER ==
[~2021-02-24] VITALS: Ht 154.9 cm; Wt 129.7 kg
--- NOTE | ~2021-02-24 | PLAN ---
[facility] [place] [address] REHAB UNIT PLAN OF CARE Name: FARIBA HAWTHORNE Room #: 504-1 ADM IN M.R.#: [id number] Admission: 02/24/21 Attend Phys: Pankaj Desai MD Discharge: Date of : 78 Report #: [id number] THIS REPORT FOR: cc: FAM - Family physician unknown FAM - Family physician unknown Pankaj Desai MD ~ DATE OF SERVICE: 02/27/2021 PROGRESS NOTE/OVERALL PLAN OF CARE HISTORY OF PRESENT ILLNESS: The patient is seen back today in followup. She is in no distress. She is feeling better. She denies any specific complaints. She has had a prior history of some gout in the past and is currently on a tapering dose of prednisone as well as the pain medication. She is alert and motivated. She is currently on room air. Functionally, she is transferring with contact guard assistance with gait 70 feet contact guard with a front-wheeled walker. In occupational therapy, upper body dressing is min assist with lower body dressing with min assist. In speech therapy, she does have moderate to severe cognitive deficits with moderate to severe memory deficits. She had a regular diet with thin liquids. ASSESSMENT: A 41-year-old -[place] female with the following problem list: 1. Critical illness myopathy. 2. Toxic metabolic encephalopathy. 3. Acute on chronic diastolic heart failure. 4. Moderate to large pericardial effusion secondary to viral illness. 5. Acute respiratory failure. 6. Influenza pneumonia, status post extubation. 7. Acute renal insufficiency. 8. Gout. 9. History of hemorrhagic cerebrovascular accident. 10. Morbid obesity. 11. Tobacco abuse. 12. Hypertension. PLAN: The overall plan of care is based on the preadmission screen and information garnered from therapy assessments. 1. Estimated length of stay is probably 5-7 days at this point. She is progressing. 2. Medical prognosis is reasonably good. 3. Anticipated interventions includes the interdisciplinary acute inpatient rehabilitation program. 4. Anticipated functional outcomes would be for the patient to become modified independent with transfers, mobility, ADLs and to improve as far as cognition, so that she can return back to the home setting. [facility] [address] [place] [address] REHAB UNIT PLAN OF CARE Name: FAIRBA HAWTHORNE Room #: 504-1 ADM IN .R.#: [id number] Admission: 02/24/21 Attend Phys: Pankaj Desai MD Discharge: Date of : 78 Report #: [id number] 5. Discharge destination would be to return back to the home setting. She does have a spouse who is on disability and 3 teenage children. 6. Expected therapy by discipline includes PT, OT and Speech 1 hour per day each 5 days a week throughout the duration of the acute inpatient rehabilitation stay. ADDENDUM: The patient's prognosis for significant practical improvement within a reasonable period of time appears good. Given the patient's complex medical condition and risk of further medical complication, rehabilitation services could not be safely provided at the lower level of care such as a nursing home facility. By: [id number] Pankaj Desai MD /nt
[2021-02-24] MEDS ORDERED: HYDROCHLOROTHIA25 M1 PO (14:46)
[2021-02-24] MEDS ORDERED: ENOXAPARIN60 MG/0.1 SUBQ (14:46)
[2021-02-24] MEDS ORDERED: NIFEDIPINE ER30 M1 PO (14:46)
[2021-02-24] MEDS ORDERED: SEROQUEL 50 MG50 MG PO (14:46)
[2021-02-24] MEDS ORDERED: IPRAT-ALBUT 0.5-3 ML INH ×2 (14:46)
[2021-02-24] MEDS ORDERED: MIRALAX17 GM PER TUBE (14:46)
[2021-02-24] MEDS ORDERED: PREDNISONE 20 M20 MG PO (14:46)
[2021-02-24] MEDS ORDERED: LISINOPRIL20 MG PO (14:46)
[2021-02-24] MEDS ORDERED: PEPCID20 MG PO (14:48)
[2021-02-24] MEDS ORDERED: TYLENOL 8 HOUR650 MG PO (14:48)
--- NOTE | 2021-02-24 15:02 | NUR ---
Chart Review. CM visited with britni. Intro to dcp, and team meeting. She requested more clothing to have for rehab, size 3x and need more afford home, staying in studio apartment and way to much. have 3 teens but oldest who is 18 is disable and they cut off her checks, she is not able to care for her self, other teens are though per britni. education on safe net packet, [facility] to get pcp or [facility]. [phone] with home state can assist dcp if needed. Britni had hx stroke in 2019, lives at home with sig other and 3 teens, independent when feeling ok. Manage own medication. No DME. No rehab or hh in the past. Will cont following as needed for dc needs.
[2021-02-24 16:10] VITALS: BP 113/53
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
--- NOTE | 2021-02-24 16:30 | NUR ---
ASSISTED PT UP TO BSC AND PT VOIDED JEREMY COLOR URINE. PT HAS PICC LINE TO RT UPPER ARM. PT UP BY WALKER TO BARIATRIC BSC WITHOUT ANY ISSUES.
[2021-02-24 19:13] VITALS: BP 109/65
--- NOTE | 2021-02-25 02:55 | NUR ---
ASSUMED CARE AT 1900 OF 02/24. PATIENT IS A&OX4, DENIES SOB. REPORTS RIGHT LOWER EXTREMITY PAIN. PAIN MANAGED WITH PRN TYLENOL. PICC LINE IN PLACE AND INTACT IN RIGHT UPPER ARM. DRESSING IS CDI. ASSIST OF 1 USING GB AND WALKER TO PIVOT TRANSFER TO [facility]. PATIENT WAS ABLE TO HAVE LARGE BM AT START OF SHIFT, REPORTS FEELING BETTER AFTER HAVING A BM. FALL PRECAUTIONS IN PLACE, CALL LIGHT WITHIN REACH, WILL CONTINUE TO MONITOR.
[2021-02-25 05:28] LABS: HEMATOCRIT 37.1 % (37.0-47.0); HEMOGLOBIN 11.9 gm/dL (12.0-15.0); MCH 27.8 pg (26.0-34.0); MCHC 32.1 g/dL (28.0-37.0); MCV 86.5 fL (80.0-100.0); RBC 4.3 mil/uL (4.20-5.00); WBC 9.2 thou/uL (4.0-11.0)
[2021-02-25 06:07] LABS: CALCIUM 9.1 mg/dL (8.5-10.1); CREATININE 1.1 mg/dL (0.6-1.0); POTASSIUM 3.2 mmol/L (3.5-5.1)
[2021-02-25 07:15] VITALS: BP 122/66
--- NOTE | 2021-02-25 10:43 | NUR ---
PATIENT IS A&O X 3-4 ABLE TO VOICE NEED. PATIENT TOOK ALL MEDICATION WHOLE WITHOUT DIFFICULTY, SHE IS EATING MEALS, AND DRINKING FLUID WELL. LUNGS WITH DIMINISHED SOUND PER ASCULTATION IN ALL LOBE, SHE DENIES ANY RESPIRATORY ISSUE. PATIENT USE BSC FOR VOIDING, NEED STANDBY ASSIST WITH PIVOT. TRIPLE LUMEN CENTRAL LINE IN PLACE. GO CALL FROM VASCULAR TEAM (HUMBLE) WHO STATES TO GET ORDER TO D/C THE PICC LINE SINCE IT'S NOT BEING USED. NURSE PRACTITIONER (NATACHA) NOTIFIED, AND IT IS OKAY TO DISCONTINUE IT PER RIB KNITTER. (HUMBLE) NOTIFIED, AND SHE WILL BE UP AROUND AFTER 3:00PM TO DISCONTINUE IT. PRN TYLENOL GIVEN FOR RIGHT FOOT PAIN, WITH PARTIAL RELIEF EFFECT. NO SIGN OF ACUTE DISTRESS NOTED, ALL FALL PRECAUTIONS IN PLACE, CALL LIGHT IN REACH, WILL CONTINUE TO MONITOR.
[2021-02-25 19:45] VITALS: BP 136/63
--- NOTE | 2021-02-26 01:52 | NUR ---
02-25-21 CARE TRANSFERRED 1899. LATER PT AAOX4, VSS, RR EVEN AND NONLABORED ON RA, LUNGS CLEAR/DIMISHED AT BASES, HT RR, ABD SOFT/ROUND/ACTIVE. PT DENIES PAIN. DURING MEDICATION ADMIN PT HAD NO DIFFICULTIES AND REPORTED GENERALIZED PAIN, PAIN HAS BEEN MANAGED WITH PRN MEDICATION. ASSISTED PT WITH REPOSITION FOR COMFORT, LE ELEVATED. PT WILL CONTINUE TO BE MONITORED
[2021-02-26 08:33] VITALS: BP 133/81
--- NOTE | 2021-02-26 09:10 | NUR ---
PT SITTING UP IN CHAIR. PT WILL GET UP WITHOUT CALLING FOR ASSISTANCE. PT GAIT IS STEADY AND SLOW. PT COMPLING OF RT FOOT HURTING ON THE TOP SHARP PAIN. PT STATED PAIN LEVEL WAS 11 NOT 10. PT WANTS TO HAVE DOSE OF MED INCREASED. PT DIDN'T WANT LOVENOX INJ. PT ALSO STATED SHE DIDN'T HAVE ANY SLEEP LAST NIGHT DUE TO THE PAIN. PT REFUSED MIRALAX. PT STATED THE PAIN MADE HER FROM A GREEN FACE TO A RED FACE FROM THE FACES ON THE BOARD.
--- NOTE | 2021-02-26 11:08 | NUR ---
ADM VIT D 50,000 UNITS X1 PO PER ORDERS.
--- NOTE | 2021-02-26 11:10 | NUR ---
ADM TYLENOL 650MG PO FOR PAIN TO RT FOOT. PT FINISHED WORKING WITH THERAPY. PT SITTING UP IN W/C AT THIS TIME.
[2021-02-26 19:09] VITALS: BP 133/83
--- NOTE | 2021-02-26 21:50 | NUR ---
ASSUMED CARE OF PT AT 1925. PT IS A&OX4. IS ON ROOM AIR. IS STABLE. REPORTS PAIN IN RIGHT FOOT THAT IS BEING MANAGED WITH PAIN MEDS & OTHER THERAPUETIC TECHNIQUES. IS UP WITH STANDBY ASSIST, GB, WALKER. FALL PRECAUTIONS & HOURLY ROUNDING CONTINUED THIS SHIFT. BID ACCU CHECKS. LABS & VITALS REVIEWED. PT IS CURRENTLY ASLEEP. CALL LIGHT WITHIN REACH. WILL CONTINUE TO MONITOR.
[2021-02-27 07:15] VITALS: BP 134/54
--- NOTE | 2021-02-27 07:41 | NUR ---
ASSUMED CARE AT 0700. PATIENT IS ALERT AND ORIENTED X4. PATIENT JAIME'S, FRYER OPERATOR ARE EQUAL. PAIN IN HER FOOT BETTER. CONTINUES TO HAVE SOME RIGHT SIDED WEAKNESS FROM PREVIOUS CVA. LUNGS ARE CLEAR AND DEMINISHED. ABD IS SOFT WITH BSX4. FALL AND SAFETY PROTOCOLS IN PLACE. PAIN IMPROVING WITH PRN PAIN MED. CONTINUES TO PROGRESS TOWARADS D/C GOALS. WILL CONTINUE TO MONITER.
--- NOTE | 2021-02-27 10:56 | NUR ---
Cont. working with therapy on acute rehab. Will cont. with discharge planning as needed for dc needs.
[2021-02-27 19:38] VITALS: BP 152/80
--- NOTE | 2021-02-28 03:31 | NUR ---
ASSUMED CARE AT 1900 OF 02/27. PATIENT IS A&OX4. ON ROOM AIR, DENIES SOB. REPORTS RIGHT FOOT PAIN WHICH IS MANAGED WITH SCHEDULED PAIN MEDICATION. STAND BY ASSIST USING GB AND WALKER FOR TRANSFER AND AMBULATION TO BATHROOM. FALL PRECAUTIONS IN PLACE, CURRENTLY SLEEPING, NON LABORED BREATHING NOTED. CALL LIGHT WITHIN REACH, WILL CONTINUE TO MONITOR.
[2021-02-28 07:16] VITALS: BP 139/86
--- NOTE | 2021-02-28 13:45 | NUR ---
PATIENT CARE ASSUMED AT 0700 - ALERT AND ORIENTED X 4. PLEASANT - STATES NO PAIN WHEN ASSESSED. MANUVERS AROUND WITH WALKER AND SELF SUFFICIENT. WORKED WITH OT/PT AND TOLERATED WELL. GOOD APPETITE ATE 100 PERCENT OF HER MEALS. HEART RATE STRONG AND STEADY. UTILIZING BATHROOM INDEPENDENTLLY. LUNGS CLEAR ON AUSCULTATION. BOWEL SOUNDS EVIDENT ALL FOUR QUADRANTS. PATIENT EXCITED ABOUT PROSPECT OF DISCHARGING SOON.
[2021-02-28 20:00] VITALS: BP 134/76
--- NOTE | 2021-03-01 02:59 | NUR ---
ASSUMED CARE AT 1900 OF 02/28. PATIENT IS A&OX4. ON ROOM AIR AND DENIES SOB. REPORTS PAIN IN RLE, WHICH IS MANAGED WITH PRN TRAMADOL AND SCHEDULED TYLENOL. STAND BY ASSIST WITH TRANSFERS AND AMBULATION USING WALKER. PATIENT CALLED OUT FOR MEDICATIONS AT HS. FALL PRECAUTIONS IN PLACE, CALL LIGHT WITHIN REACH. WILL CONTINUE TO MONITOR.
[2021-03-01 07:15] VITALS: BP 123/82
--- NOTE | 2021-03-01 10:20 | NUR ---
PT WAS RESTING AT FOOT OF BED. PT DIDN'T ASK FOR MEDS, PT STATED SHE WAS ON A PHONE CALL WITH A FRIEND AND FORGOT TO ASK. PT STATED SHE WANTED HER OXYGEN CHECKED BEFORE SHE GOES HOME DUE TO HER SAT DECREASES DURING EXERCISE AND SLEEP. PT LUNGS CLEAR AND ON ROOM AIR AT THIS TIME. PT REFUSED MIRALAX THIS AM.
--- NOTE | 2021-03-01 16:05 | NUR ---
PT HAS HAD A GOOD DAY TODAY. PT DIDN'T ASK FOR ANY PAIN MEDICATION. PT UP IN ROOM STAND-BY ASSIST WITH STEADY GAIT.
--- NOTE | 2021-03-01 16:44 | NUR ---
ADM TRAMADOL 50MG PO PAIN TO RT FOOT OF 9 ON 1-10 SCALE. PT SITTING UP EATING DINNER.
[2021-03-01 19:21] VITALS: BP 150/82
--- NOTE | 2021-03-02 02:39 | NUR ---
assumed care approx 1900 evening 03/01. pt alert and oriented x4, pleasant and cooperative. pt up to bathroom with walker with supervision tolerating well. pt took hs meds with water tolerating well. pt appears to be sleeping soundly. bed alarm on and call light in reach. will continue to monitor.
[2021-03-02 07:15] VITALS: BP 135/68
[2021-03-02 08:30] VITALS: BP 135/68
[2021-03-02 18:42] VITALS: BP 140/84
--- NOTE | 2021-03-02 19:34 | NUR ---
PT UP TO FLOOR APPROX 1700. PT A&OX4. PASSIE VALVE IN PLACE AT TRACH SITE. PT PEG TUBE FEEDING GOING AT 20MLS PER HOUR. CALORIE COUNT STARTED (NEED ENVELOPE FROM DIETARY) WILL TRY TO INCREASE TUBE FEEDINGS ON 03/03. PT UP TO CHAIR FROM WC, UNSTEADY GAIT NOTED. PT ORIENTED TO ROOM, CALL LIGHT, FALL RISK PAPERWORK SIGNED. PT ON 2L NC. PEG SITE IS CDI. WILL CONTINUE TO MONITOR.
--- NOTE | 2021-03-02 19:38 | NUR ---
PT A&OX4. PT UP WITH SBA/SUPERVISION. PT STATES SHE IS READY TO GO HOME. WILL CONTNIUE TO MONITOR
--- NOTE | 2021-03-03 00:57 | NUR ---
ASSUMED CARE APPROX 1900 EVENING 03/02. PT NOW IN APARTMENT 501, HAPPY AND FEELS LIKE SHE IS MAKING GOOD PROGRESS. PT STATED SHE HAD A GOOD DAY WITH THERAPY AND IS LOOKING FORWARD TO HOPEFULLY BEING DISCHARGED THIS WEEK. PT CALLED FOR HS MEDS AND TOOK WITH WATER TOLERATING WELL. PT APPEARS TO BE SLEEPING SOUNDLY. BED ALARM ON AND CALL LIGHT IN REACH. WILL CONTINUE TO MONITOR.
[2021-03-03 05:05] LABS: ABSOLUTE NEUTROPHILS 4.6 thou/uL (1.4-8.2); BASOPHILS 0.8 % (0.0-2.0); HEMATOCRIT 38.5 % (37.0-47.0); HEMOGLOBIN 12.5 gm/dL (12.0-15.0); LYMPHOCYTES 36.7 % (24.0-44.0); MCH 27.9 pg (26.0-34.0); MCHC 32.5 g/dL (28.0-37.0); MCV 85.7 fL (80.0-100.0); MONOCYTES 7.3 % (1.0-8.0); PLATELET COUNT 323 thou/uL (150-400); POLYS 54.2 % (36.0-66.0); RBC 4.49 mil/uL (4.20-5.00); RDW 17.6 % (10.5-14.5); WBC 8.5 thou/uL (4.0-11.0)
[2021-03-03 05:56] LABS: CALCIUM 8.9 mg/dL (8.5-10.1); CREATININE 0.6 mg/dL (0.6-1.0); MAGNESIUM 1.7 mg/dL (1.8-2.4); POTASSIUM 3.9 mmol/L (3.5-5.1)
[2021-03-03 07:00] VITALS: BP 114/84
--- NOTE | 2021-03-03 11:04 | H ---
[facility] [place] [address] HISTORY AND PHYSICAL Name: FARIBA HAWTHORNE Room #: 501-A ADM IN M.R.#: [id number] Admission: 02/24/21 Attend Phys: Pankaj Desai MD Discharge: Date of : 78 Report #: [id number] THIS REPORT FOR: cc: FAM - Family physician unknown FAM - Family physician unknown Pankaj Desai MD ~ DATE OF SERVICE: 02/25/2021 HISTORY OF PRESENT ILLNESS: The patient is a 41-year-old -[place] female originally admitted to [facility] on 02/01/2021 with worsening shortness of breath. She required intubation for acute respiratory failure. COVID-19 was tested negative x 2. She was positive for H. influenza. She was admitted to ICU care, intubated from 02/01 through 02/16/2021, then placed on high-flow cannula. She was diagnosed with an acute exacerbation of congestive heart failure with lesbgfav-hf-rzvmb pericardial effusion that was felt secondary to viral illness. Pericardiocentesis was attempted and unsuccessful due to body habitus. She does have a history of morbid obesity. She was treated with IV Lasix, IV Solu-Medrol, was able to be tapered down some on her oxygen. She was noted to have significant functional deficits with critical illness myopathy and acute metabolic encephalopathy. She was felt to be ready for transfer for acute in-hospital inpatient rehabilitation. 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 Past medical history also includes morbid obesity, asthma, tobacco abuse. MEDICATIONS: Please see the full medication listing. ALLERGIES: No known drug allergies. SOCIAL HISTORY: The patient has been living at home with her spouse who is on disability. Three teenage kids. She was independent with IADLs, and ADLs. No adaptive devices. Four steps. REVIEW OF SYSTEMS: Did not offer any current complaints of chest pain, shortness of breath or abdominal discomfort. PHYSICAL EXAMINATION: GENERAL: A pleasant 41-year-old morbidly obese -[place] female in no obvious distress. Currently on room air. VITAL SIGNS: Last recorded height 5 feet 1 inches, weight 286 pounds. Temperature 97.6, pulse 102, respirations 18, blood pressure 122/66. NEUROLOGIC: She is alert, pleasant, engaging. Facies appeared symmetric. HEENT: Appeared to be benign. CHEST: Some decreased breath sounds throughout, otherwise sounded relatively clear. [facility] [address] [place] [address] HISTORY AND PHYSICAL Name: FARIBA HAWTHORNE Room #: 501-A [facility]#: [id number] Admission: 02/24/21 Attend Phys: Pankaj Desai MD Discharge: Date of : 78 Report #: [id number] CARDIAC: Regular rate and rhythm. ABDOMEN: Obese. Bowel sounds positive, nontender. GENITOURINARY AND RECTAL: Deferred. EXTREMITIES: Functional range of motion of both upper extremities and lower extremities. I would grade her strength at probably 4-/5. She is noted to be mod assist sit to stand. Noted to have moderate cognitive and memory deficits. ASSESSMENT: A 41-year-old -[place] female with the following problems: 1. Critical illness myopathy. 2. Acute metabolic encephalopathy. 3. Bsbts-gc-mgdtvcc diastolic heart failure. 4. Nvnkeaud-bt-myuhu pericardial effusion secondary to viral illness. 5. Acute respiratory failure with pneumonia, status post extubation. 6. Acute renal insufficiency. 7. History of gout. 8. History of hemorrhagic cerebrovascular accident. 9. Morbid obesity. 10. Tobacco abuse. 11. Hypertension. PLAN: Agree with the history and physical documentation as noted. Please see the full 14-point review of systems The patient is admitted for an acute in-hospital inpatient rehabilitation stay. Goal is to maximize her functional independence, so she can hopefully return back to her prior living situation. Prognosis is reasonably good. <ELECTRONICALLY SIGNED> By: Pankaj Desai MD 03/03/21 1104 [id number] Pankaj Desai MD /nt
--- NOTE | 2021-03-03 12:35 | NUR ---
Team meeting, recommendation: cardiology consult, ekg today r/t elevated heart rate. independent with Adl's, 75-80 ft without gait aid, supervision touch. cook test tomorrow. mod to sever cognition and memory. will need assist with pills and bills. dc on home with nurse only. get pcp ronnie devine or roberto.
[2021-03-03 19:04] VITALS: BP 117/57
--- NOTE | 2021-03-04 04:19 | NUR ---
ASSUMED CARE AT 1900 OF 03/03. PATIENT IS A&OX4, REPORTS RIGHT LOWER EXTREMITY PAIN. MANAGED WITH PRN TRAMADOL AND SCHEDULED TYLENOL. STANDBY ASSIST WITH TRANSFERS AND AMBULATION USING WALKER. PATIENT CALLED OUT FOR MEDICATIONS AT AND TOLERATED THEM WHOLE WITH THIN LIQUIDS. NO CONCERNS AT THIS TIME. CALL LIGHT WITHIN REACH. WILL CONTINUE TO MONITOR.
[2021-03-04 05:38] LABS: HEMATOCRIT 37.6 % (37.0-47.0); HEMOGLOBIN 12.2 gm/dL (12.0-15.0); MCH 28.1 pg (26.0-34.0); MCHC 32.5 g/dL (28.0-37.0); MCV 86.3 fL (80.0-100.0); RBC 4.36 mil/uL (4.20-5.00); RDW 17.5 % (10.5-14.5)
[2021-03-04 06:35] LABS: CALCIUM 8.7 mg/dL (8.5-10.1); CREATININE 0.7 mg/dL (0.6-1.0); MAGNESIUM 1.8 mg/dL (1.8-2.4)
[2021-03-04 07:15] VITALS: BP 128/71
--- NOTE | 2021-03-04 16:42 | NUR ---
Assumed pt care at 0700. Pt was alert and oriented x4. Calm and cooperative with care. Took meds whole with thin liquid, no difficulty noted. C/O pain, tylenol and tramadol administered as ordered to manage pain. pt call for 9AM meds. Participated in activities. 1200 pt heart was 140s with cooking activities. Staff assist pt to sit with the fan turn on. Reassessment of heart rate 110. At this time pt heart rate is 84 while resting. call light within reach. ambulate with walker. No c/o of right foot pain this shift. Will continue to monitor.
[2021-03-04 20:00] VITALS: BP 146/79
--- NOTE | 2021-03-05 06:05 | NUR ---
PT REMAIN ALERT AND ORIENT TIMES FOUR. UP AD BRET WITH STEADY GAIT. VSS, AFEBRILE. PRN PAIN MEDICATION GIVEN WITH GOOD RELIEF PER PT. PT ANTICIPATING BEING DC TO HOME TODAY. PT DOES GET TACHY WITH AMBULATION. MAX HR 110. EASY TO RECOVER. GOOD PROGRESS TOWARDS DC GOALS, WILL CONTINUE TO MONITOR.
[2021-03-05 08:20] VITALS: BP 142/68
[2021-03-05] MEDS ORDERED: SEROQUEL 50 MG50 MG PO ×2 (08:44→12:35)
[2021-03-05] MEDS ORDERED: VITAMIN D3125 MC1 PO (08:44)
[2021-03-05] MEDS ORDERED: METOPROLOL SUCC50 MG PO ×2 (08:44→12:35)
[2021-03-05] MEDS ORDERED: HYDROCHLOROTHIA25 M1 PO ×2 (08:44→12:35)
[2021-03-05] MEDS ORDERED: ALLOPURINOL 30300 M1 PO ×2 (08:44→12:35)
[2021-03-05] MEDS ORDERED: FOLIC ACID1 MG PO (08:44)
[2021-03-05] MEDS ORDERED: LISINOPRIL20 MG PO ×2 (08:44→12:35)
--- NOTE | 2021-03-05 09:14 | NUR ---
[facility] rx card delivered, [facility] will deliver fww. no auth needed from [facility] for the walker. [facility] does not take, [facility] out of network. [facility] out of network. [facility] at capacity for med[facility]. [facility] does not take her insurance. [facility] does not take [facility]. [facility] doesnt take. [facility] do not accept her insurance. [facility] doesnt not either, and [facility] is no also. [facility] does not accept. [facility] not accept her insurance.
[2021-03-05 10:19] VITALS: BP 142/68
--- NOTE | 2021-03-05 10:39 | NUR ---
DISCHARGE INSTRUCTIONS GIVEN TO PATIENT AND AUNT. PT D/C'D BY W/C TO MAIN ENTRANCE. PATIENT WAS MOD/I WITH TRANSFERS FROM BED TO W/C , AND W/C TO CAR. PATIENT LEFT WITH ALL OF HER BELONGINGS AND D/C INSTRUCTIONS. SCRIPTS SENT TO [facility].
[2021-03-05] MEDS ORDERED: PEPCID20 MG PO (12:35)
--- NOTE | 2021-03-07 10:44 | HC ---
[facility] [place] [address] [place] [address] CONSULTATION Name: FARIBA HAWTHORNE Room #: 501-A [facility] IN ..#: [id number] Admission: 02/24/21 Attend Phys: Pankaj Desai MD Discharge: 03/05/21 Date of : 78 Report #: [id number] THIS REPORT FOR: cc: FAM - Family physician unknown FAM - Family physician unknown Armando Buckner PhD ~ DATE OF SERVICE: 03/01/2021 NEUROBEHAVIORAL STATUS EXAM AGE: 41. ATTENDING PHYSICIAN: Pankaj Desai M.D. SECOND MATE: Armando Buckner, PhD CLINICAL PRESENTATION: The patient is a 41-year-old female admitted to [facility] rehabilitation unit for a comprehensive inpatient rehabilitation program for treatment of critical illness myopathy and encephalopathy. She was initially admitted to the hospital on 02/01/2021 with worsening shortness of breath which required intubation for acute respiratory failure. The patient was unvaccinated COVID-19. She carries a medical problem list of respiratory failure and hypoxia. Her assessment on admission to the rehabilitation unit included acute on chronic diastolic heart failure, moderate to large pericardial effusion secondary to viral illness, critical illness myopathy, acute metabolic encephalopathy, acute respiratory failure, LILLIANA, gout, history of hemorrhagic stroke, morbid obesity, tobacco abuse and hypertension. A complete description of her medical condition and history can be found in her medical record. Neuropsychological consultation was requested to provide assistance in the assessment of cognitive and emotional status and to provide recommendations and services. Prior to this most recent admission, the patient was living with her boyfriend. They have been together for 20 years. She does not remember the reason for her hospitalization. She stated that she is reported to have been hallucinating and that she has had a stroke in 09/2020. Her stroke apparently affected the right side of hemispace. She reports thumb, fingers and toes on the right side is numb. She also is amnestic surrounding the stroke in September. The patient has 3 children. She reports having been a high school graduate and employed at [employer] for several years. She has not worked for about the last 1 to 2 years. The patient reports that she has not driven for approximately 1 month. Alcohol use and tobacco use are reported as elevated. [facility] [address] [place] [address] CONSULTATION Name: FARIBA HAWTHORNE Room #: 501-A [facility] IN ..#: [id number] Admission: 02/24/21 Attend Phys: Pankaj Desai MD Discharge: 03/05/21 Date of : 78 Report #: [id number] TECHNIQUES UTILIZED: Clinical interview, review of medical records, staff consultation and behavioral observation, mini mental status exam 2 standard version, clock drawing and verbal fluency assessment. EXAMINATION FINDINGS: The patient was alert and cooperative with the assessment. There is no evidence of aphasia. She does not report auditory or visual hallucinations. There is no evidence of thought disorder. She reports her symptoms to include anxiety, memory, word finding deficits and difficulty with sleep. She is obese and does not report difficulty with appetite. She does report having had a learning disability affecting math and reading throughout her education. Her performance on the MMSE 2 brief version is in the borderline range with a raw score of 13 and 16, T-score 31, percentile rank of 3. The patient had difficulty with orientation to time and was 2/3 for immediate recall of 3 items after a brief time delay and distraction. Performance on the standard version of the MMSE 2 was 22/30, which is a T score of 25 and percentile rank of 1. Extremely low functioning is noted. She was 1/5 for serial sevens and was unable to copy a simple geometric design. The patient was unable to draw a clock and set the hands at a designated time. Letter fluency was a T score of 32, percentile rank of 4. Brief category fluency was a T score of 32 and percentile rank of 4. The patient is presenting with deficits in sustained concentration, verbal fluency and executive functioning. Visual spatial impairment and visual motor integration deficits are noted. DIAGNOSTIC IMPRESSION: Major neurocognitive disorder, possibly due to hypoxia and vascular disease, without behavior disorder -- extent to be determined, likely in the mild range of severity. Adjustment disorder with anxious mood. RECOMMENDATIONS: The patient will require continued assistance in the management of medication, finances and nutrition. Driving should not be resumed until a more formal assessment can verify her safety. Continued speech therapy to assist with thought organization, planning and problem solving along with compensatory techniques. Education will be necessary for her and family to inform them of cognitive limitations and assistance that is going to be needed for managing IADLs. [facility] [address] [place] [address] CONSULTATION Name: FARIBA HAWTHORNE Room #: 501-A [facility] IN ..#: [id number] Admission: 02/24/21 Attend Phys: Pankaj Desai MD Discharge: 03/05/21 Date of : 78 Report #: [id number] Thank you very much for allowing me to provide the consultation on this patient. <ELECTRONICALLY SIGNED> By: Aramndo Buckner, PhD 03/07/21 1044 [id number] Armando Buckner, PhD /nt
--- NOTE | 2021-03-11 16:32 | NUR ---
LATE ENTRY NOTE FOR 02/28/21: Pt WAS SEEN BY TYRON DOUGLAS, SEAN FOR 60 MINUTES OF INDIVIDUAL PT TREATMENT ON THIS DAY.
== END 2021-03-05 10:50 | disposition home or self-care (01) | DRG 91 ==
PROVIDERS: Nurse Practitioner; Nurse Practitioner Family; ADMIT Physical Medicine & Rehabilitation; ATTEND Physical Medicine & Rehabilitation
DX: G72.81 Critical illness myopathy (principal); I50.33 Acute on chronic diastolic (congestive) heart failure; J96.21 Acute and chronic respiratory failure with hypoxia; G92 Toxic encephalopathy; J18.9 Pneumonia, unspecified organism; N17.9 Acute kidney failure, unspecified; I31.3 Pericardial effusion (noninflammatory); Z68.43 Body mass index [BMI] 50.0-59.9, adult; I13.0 Hypertensive heart and chronic kidney disease with heart failure and stage 1 through stage 4 chronic kidney disease, or unspecified chronic kidney disease; R53.81 Other malaise; M10.9 Gout, unspecified; E66.01 Morbid (severe) obesity due to excess calories; N18.9 Chronic kidney disease, unspecified; E83.42 Hypomagnesemia; F01.50 Vascular dementia, unspecified severity, without behavioral disturbance, psychotic disturbance, mood disturbance, and anxiety; F43.22 Adjustment disorder with anxiety; J45.909 Unspecified asthma, uncomplicated; F17.210 Nicotine dependence, cigarettes, uncomplicated; B96.3 Hemophilus influenzae [H. influenzae] as the cause of diseases classified elsewhere; Z79.899 Other long term (current) drug therapy; Z86.73 Personal history of transient ischemic attack (TIA), and cerebral infarction without residual deficits; Z82.3 Family history of stroke
CPT/HCPCS: 10112